=== PATIENT | male | born 1970 | race Caucasian/White ===

== ENCOUNTER → 2016-07-12 | Outpatient (CLI) | payer OTHER ==
--- NOTE | 2016-07-12 09:47 | Diagnostic Imaging Report ---
PROCEDURE: US Gallbladder. TECHNIQUE: Multiple real-time grayscale images were obtained over the right upper quadrant in various projections. INDICATION: Epigastric pain with vomiting. FINDINGS: Pancreas is largely obscured by bowel gas. The liver is fairly homogeneous with no focal lesion. There is hepatopedal flow in the portal vein. The gallbladder demonstrates no stones or wall thickening. No pericholecystic fluid is seen. The CBD is obscured by bowel gas. The right kidney is 11 CM in length with no hydronephrosis or focal lesion. No fluid collection in the upper right abdomen is noted. IMPRESSION: No gallstones or evidence of cholecystitis. Dictated by: Dictated on workstation # [id number]
== END ==
LOC: RAD 08:53
PROVIDERS: ATTEND Family Medicine
DX: R10.13 Epigastric pain (principal)
CPT/HCPCS: 76705